=== PATIENT | female | born 1990 | race Two or more races ===

== ENCOUNTER 2018-12-30 14:54 | Day surgery (SDC) | payer BC, MEDICAID ==
[~2018-12-30] VITALS: Ht 162.6 cm; Wt 85.0 kg
[2018-12-30] MEDS ORDERED: LACTATED RINGERS 1,000 ML IV SCH ×2 (15:38→19:00)
[2018-12-30 15:39] VITALS: BP 124/86
[2018-12-30] MEDS ORDERED: NO MEDICATIONS (15:50)
[2018-12-30] MEDS ORDERED: PLEASE ENTER HEIGHT AND WEIGHT MC SCH (16:00)
[2018-12-30] MEDS ORDERED: GABAPENTIN 300 MG CAPSULE PO ONE (16:00)
[2018-12-30] MEDS ORDERED: ACETAMINOPHEN 500 MG TABLET PO ONE (16:00)
[2018-12-30] MEDS ORDERED: ONDANSETRON ODT 8 MG PO ONE (16:00)
[2018-12-30] MEDS ORDERED: MIDAZOLAM 1 MG/ML, 2ML ONE (16:03)
[2018-12-30] MEDS ORDERED: FENTANYL PF 100 MCG/2ML ONE (16:03)
[2018-12-30 16:23] LABS: HCG UR SG 1.033 (1.003-1.030)
[2018-12-30] MEDS ORDERED: CEFAZOLIN 1,000 MG ONE (16:27)
[2018-12-30] MEDS ORDERED: PROPOFOL 10 MG/ML, 20ML ONE (16:27)
[2018-12-30] MEDS ORDERED: SUCCINYLCHOLINE 20 MG/ML, 10ML ONE (16:27)
[2018-12-30] MEDS ORDERED: DEXAMETHASONE 4 MG/ML, 1ML ONE (16:27)
[2018-12-30] MEDS ORDERED: OXYcodone 5 MG/5 ML ORAL.SOL UDC ONE (17:41)
[2018-12-30] MEDS ORDERED: MEPERIDINE/PF 25MG/ML,1ML ONE (17:45)
[2018-12-30] MEDS ORDERED: METOCLOPRAMIDE 5 MG/ML, 2ML IV PRN (18:00)
[2018-12-30] MEDS ORDERED: HYDROmorphone 2 MG/ML, 1ML IVPush PRN (18:00)
[2018-12-30] MEDS ORDERED: ONDANSETRON 2MG/ML, 2ML IV PRN ×2 (18:00→19:00)
[2018-12-30] MEDS ORDERED: LORazepam 2 MG/ML, 1ML IVPush PRN (18:00)
[2018-12-30] MEDS ORDERED: OXYcodone 5 MG/5 ML ORAL.SOL UDC PO PRN (18:00)
[2018-12-30] MEDS ORDERED: FENTANYL PF 100 MCG/2ML IV PRN (18:00)
[2018-12-30] MEDS ORDERED: MEPERIDINE/PF 25MG/0.5ML IVPush PRN ×2 (18:00)
[2018-12-30] MEDS ORDERED: KETOROLAC 30 MG/1 ML IV SCH (19:00)
[2018-12-30] MEDS ORDERED: OXYcodone/APAP 5/325MG TABLET PO PRN (19:00)
[2018-12-30] MEDS ORDERED: morphine SULFATE 10 MG/ML, 1ML IV PRN (19:00)
== END 2018-12-30 19:50 | disposition home or self-care (01) ==
LOC: OR 14:54 → 4NOR 18:23 → OR 19:50
PROVIDERS: ATTEND Orthopaedic Surgery
DX: S86.012A Strain of left Achilles tendon, initial encounter (principal); X58.XXXA Exposure to other specified factors, initial encounter; Y93.66 Activity, soccer; Y92.89 Other specified places as the place of occurrence of the external cause; Y99.8 Other external cause status
CPT/HCPCS: 27650; 64445; 81025; J2175; J2250; J3010; J7120; Q0162; G0378; J0690; J1100; J2704; J0330